=== PATIENT | male | born 1965 | race Caucasian/White ===

== ENCOUNTER 2020-01-25 11:23 | Inpatient (IN) ==
[2020-01-25] MEDS ORDERED: Ondansetron 4 MG/2 ML VIAL IVP PRN (14:21)
[2020-01-25] MEDS ORDERED: Naloxone 0.4 MG/ML INJ IVP PRN (14:21)
[2020-01-25] MEDS ORDERED: 0.9 % Sodium Chloride 1,000 ML IVC SCH (14:45)
[2020-01-25] MEDS ORDERED: Ibuprofen 800 MG TABLET PO PRN (15:01)
[2020-01-25] MEDS: Nicotine 14 MG PATCH.TD24 TD SCH (15:27)
[2020-01-25] MEDS: *HR* OxyCODONE Immed Rel 5 MG TABLET PO PRN (15:27)
[2020-01-25] MEDS: *HR* HYDROcodone/Acet 5/325 mg TABLET PO PRN (20:51)
[2020-01-25] MEDS: *HR* Heparin 5,000 UNIT/ML VIAL SQ SCH (21:28)
[2020-01-26] MEDS: *HR* OxyCODONE Immed Rel 5 MG TABLET PO PRN ×2 (00:59→07:40)
[2020-01-26 01:28] LABS: Amorphous Sediment,Urine Few per hpf (None-Few); Bacteria,Urine Few per hpf (None-Few); Bilirubin,Urine Small (Negative); Blood,Urine Negative (Negative); Clarity,Urine Clear (Clear); Color,Urine Yellow (Yellow); Glucose,Urine (UA) 30 mg/dL (Normal); Ketones,Urine Negative (Negative); Leukocyte Esterase,Urine Negative (Negative); Mucus,Urine Few per lpf (None-Few); Nitrite,Urine Negative (Negative); Protein,Urine 50 mg/dL (Neg-Trace); Specific Gravity,Urine > 1.030 (1.010-1.025); Urobilinogen,Urine >=8.0 mg/dL (Normal)
[2020-01-26] MEDS: *HR* Heparin 5,000 UNIT/ML VIAL SQ SCH ×3 (05:47→21:25)
[2020-01-26 05:48] LABS: Basophils % 0.2 %; Eosinophils # 0.1 K/mcL (0.0-0.6); Eosinophils % 0.3 %; Hemoglobin 12.2 g/dL (12.9-16.9); Immature Granulocytes % 1.2 % (0-4); Lymphocytes # 1.6 K/mcL (0.6-4.6); Lymphocytes % 9.9 %; Mean Corpuscular Hemoglobin 29.5 pg (28.0-33.3); Mean Corpuscular Volume 89.4 fL (83.0-100.0); Mean Platelet Volume 9.4 fL (9.4-12.4); Monocytes # 0.9 K/mcL (0.0-1.3); Monocytes % 5.7 %; Neutrophils # 13.3 K/mcL (1.6-8.9); Platelet Count 369 K/mcL (140-400); Red Blood Count 4.14 M/mcL (4.19-5.50); Red Cell Distribution Width 13.1 % (11.5-14.5); Segmented Neutrophils % 82.7 %; White Blood Count 16.1 K/mcL (4.3-11.1)
[2020-01-26 05:58] LABS: BUN/Creatinine Ratio 19 (6-26); Blood Urea Nitrogen 13 mg/dL (6-20); Calcium 8.1 mg/dL (8.6-10.3); Carbon Dioxide 25 mEq/L (23-29); Chloride 100 mEq/L (98-107); Glucose 88 mg/dL (70-105); Osmolality,Calculated 274 (280-300); Sodium 132 mEq/L (136-145); eGFR For African Americans > 60 (> 60); eGFR For Non-African Americans > 60 (> 60)
[2020-01-26] MEDS: Nicotine 14 MG PATCH.TD24 TD SCH (07:41)
[2020-01-26] MEDS: 0.9 % Sodium Chloride 1,000 ML IVC SCH (15:33)
[2020-01-26] MEDS: *HR* HYDROcodone/Acet 5/325 mg TABLET PO PRN (15:33)
[2020-01-26 16:33] LABS: INR 1.3; Prothrombin Time 14.7 Seconds (9.4-12.1)
[2020-01-26] MEDS: *HR* HYDROmorphone (PF) 1 MG/ML SYRINGE IVP PRN (20:59)
[2020-01-27] MEDS: *HR* HYDROcodone/Acet 5/325 mg TABLET PO PRN (01:24)
[2020-01-27] MEDS: 0.9 % Sodium Chloride 1,000 ML IVC SCH (03:16)
[2020-01-27] MEDS: *HR* HYDROmorphone (PF) 1 MG/ML SYRINGE IVP PRN ×2 (03:28→11:15)
[2020-01-27] MEDS: *HR* Heparin 5,000 UNIT/ML VIAL SQ SCH ×3 (05:18→21:10)
[2020-01-27] MEDS ORDERED: 0.9 % Sodium Chloride 500 ML ONE (09:05)
[2020-01-27] MEDS ORDERED: *HR* Midazolam HCl 2 MG/2 ML VIAL IVP ONE (09:26)
[2020-01-27] MEDS ORDERED: *HR* FentaNYL (PF) 100 MCG/2 ML VIAL ONE (09:26)
[2020-01-27] MEDS ORDERED: *HR* Midazolam HCl 2 MG/2 ML VIAL ONE (09:26)
[2020-01-27] MEDS ORDERED: *HR* FentaNYL (PF) 100 MCG/2 ML VIAL IVP ONE (09:26)
[2020-01-27] MEDS: Nicotine 14 MG PATCH.TD24 TD SCH (11:14)
[2020-01-27] MEDS: *HR* OxyCODONE/APAP 10/325 TABLET PO PRN ×2 (13:15→18:08)
[2020-01-28 02:16] LABS: Basophils % 0.3 %; Eosinophils % 0.1 %; Hematocrit 37.3 % (37.5-50.1); Hemoglobin 12.3 g/dL (12.9-16.9); Immature Granulocytes % 1.2 % (0-4); Lymphocytes # 1.5 K/mcL (0.6-4.6); Lymphocytes % 10.3 %; Mean Corpuscular Hemoglobin 29.5 pg (28.0-33.3); Mean Corpuscular Volume 89.4 fL (83.0-100.0); Mean Platelet Volume 8.9 fL (9.4-12.4); Monocytes % 6.8 %; Neutrophils # 11.5 K/mcL (1.6-8.9); Platelet Count 371 K/mcL (140-400); Red Blood Count 4.17 M/mcL (4.19-5.50); Red Cell Distribution Width 13.1 % (11.5-14.5); Segmented Neutrophils % 81.3 %; White Blood Count 14.2 K/mcL (4.3-11.1)
[2020-01-28 02:35] LABS: BUN/Creatinine Ratio 25 (6-26); Blood Urea Nitrogen 16 mg/dL (6-20); Calcium 8.2 mg/dL (8.6-10.3); Carbon Dioxide 26 mEq/L (23-29); Chloride 103 mEq/L (98-107); Glucose 110 mg/dL (70-105); Osmolality,Calculated 282 (280-300); Potassium 3.8 mEq/L (3.5-5.1); Sodium 135 mEq/L (136-145); eGFR For African Americans > 60 (> 60); eGFR For Non-African Americans > 60 (> 60)
[2020-01-28] MEDS: *HR* OxyCODONE/APAP 10/325 TABLET PO PRN ×5 (02:49→21:04)
[2020-01-28] MEDS: *HR* Heparin 5,000 UNIT/ML VIAL SQ SCH ×3 (05:38→21:04)
[2020-01-28] MEDS: Nicotine 14 MG PATCH.TD24 TD SCH (07:23)
[2020-01-28 11:23] LABS: mecA Methicillin-Resist Gene DETECTED (Not Detect)
[2020-01-28 11:24] LABS: Acinetobacter baumannii by PCR Not Detected (Not Detect); Candida albicans by PCR Not Detected (Not Detect); Candida glabrata by PCR Not Detected (Not Detect); Candida krusei by PCR Not Detected (Not Detect); Candida parapsilosis by PCR Not Detected (Not Detect); Candida tropicalis by PCR Not Detected (Not Detect); Enterobacter cloacae Cmplx PCR Not Detected (Not Detect); Enterobacteriaceae by PCR Not Detected (Not Detect); Enterococcus by PCR Not Detected (Not Detect); Escherichia coli by PCR Not Detected (Not Detect); Klebsiella oxytoca by PCR Not Detected (Not Detect); Klebsiella pneumoniae by PCR Not Detected (Not Detect); Proteus by PCR Not Detected (Not Detect); Pseudomonas aeruginosa by PCR Not Detected (Not Detect); Serratia marcescens by PCR Not Detected (Not Detect); Staphylococcus aureus by PCR DETECTED (Not Detect); Streptococcus agalactiae(B)PCR Not Detected (Not Detect); Streptococcus by PCR Not Detected (Not Detect); Streptococcus pneumoniae PCR Not Detected (Not Detect); Streptococcus pyogenes (A) PCR Not Detected (Not Detect)
[2020-01-28] MEDS: Pantoprazole 40 MG VIAL IVP SCH (14:24)
[2020-01-28] MEDS ORDERED: *HR* LORazepam 0.5 MG TABLET PO ONE (19:57)
[2020-01-29 01:12] LABS: Basophils % 0.2 %; Eosinophils % 0.1 %; Hematocrit 31.9 % (37.5-50.1); Immature Granulocytes % 1.2 % (0-4); Lymphocytes # 1.4 K/mcL (0.6-4.6); Lymphocytes % 10.9 %; Mean Corpuscular HGB Conc 33.2 g/dL (31.6-35.5); Mean Corpuscular Volume 90.4 fL (83.0-100.0); Mean Platelet Volume 9.2 fL (9.4-12.4); Monocytes % 7.7 %; Neutrophils # 10.1 K/mcL (1.6-8.9); Platelet Count 341 K/mcL (140-400); Red Blood Count 3.53 M/mcL (4.19-5.50); Segmented Neutrophils % 79.9 %; White Blood Count 12.7 K/mcL (4.3-11.1)
[2020-01-29 01:13] LABS: Hemoglobin 10.6 g/dL (12.9-16.9)
[2020-01-29 01:21] LABS: BUN/Creatinine Ratio 24 (6-26); Blood Urea Nitrogen 14 mg/dL (6-20); Calcium 7.6 mg/dL (8.6-10.3); Carbon Dioxide 23 mEq/L (23-29); Chloride 103 mEq/L (98-107); Glucose 112 mg/dL (70-105); Osmolality,Calculated 281 (280-300); Potassium 3.8 mEq/L (3.5-5.1); Sodium 135 mEq/L (136-145); eGFR For African Americans > 60 (> 60); eGFR For Non-African Americans > 60 (> 60)
[2020-01-29] MEDS: *HR* OxyCODONE/APAP 10/325 TABLET PO PRN ×5 (03:23→20:37)
[2020-01-29] MEDS: *HR* Heparin 5,000 UNIT/ML VIAL SQ SCH ×3 (06:17→20:37)
[2020-01-29] MEDS: Pantoprazole 40 MG VIAL IVP SCH (07:25)
[2020-01-29] MEDS: Nicotine 14 MG PATCH.TD24 TD SCH (07:25)
[2020-01-29] MEDS ORDERED: Perflutren Lipid Microsphere 1.3 ML in 0.9 % Sodium Chloride 8.7 ML IVP PRN (07:39)
[2020-01-29] MEDS ORDERED: 0.9 % Sodium Chloride 500 ML ONE ×2 (13:40)
[2020-01-29] MEDS ORDERED: *HR* FentaNYL (PF) 100 MCG/2 ML VIAL IVP ONE (13:55)
[2020-01-29] MEDS ORDERED: Sennosides/Docusate Sodium TABLET PO PRN (14:22)
[2020-01-30] MEDS: *HR* OxyCODONE/APAP 10/325 TABLET PO PRN ×4 (00:50→20:16)
[2020-01-30 03:04] LABS: Basophils % 0.2 %; Eosinophils % 0.1 %; Hematocrit 30.6 % (37.5-50.1); Hemoglobin 10.1 g/dL (12.9-16.9); Immature Granulocytes % 1.1 % (0-4); Lymphocytes # 1.1 K/mcL (0.6-4.6); Lymphocytes % 10.7 %; Mean Corpuscular Hemoglobin 29.4 pg (28.0-33.3); Mean Corpuscular Volume 89.2 fL (83.0-100.0); Mean Platelet Volume 9.5 fL (9.4-12.4); Monocytes # 0.7 K/mcL (0.0-1.3); Monocytes % 6.5 %; Neutrophils # 8.4 K/mcL (1.6-8.9); Platelet Count 352 K/mcL (140-400); Red Blood Count 3.43 M/mcL (4.19-5.50); Red Cell Distribution Width 13.2 % (11.5-14.5); Segmented Neutrophils % 81.4 %; White Blood Count 10.3 K/mcL (4.3-11.1)
[2020-01-30 03:21] LABS: BUN/Creatinine Ratio 25 (6-26); Blood Urea Nitrogen 14 mg/dL (6-20); C-Reactive Protein 239 mg/L (Less than 10); Calcium 7.7 mg/dL (8.6-10.3); Carbon Dioxide 24 mEq/L (23-29); Chloride 103 mEq/L (98-107); Glucose 133 mg/dL (70-105); Osmolality,Calculated 282 (280-300); Potassium 3.7 mEq/L (3.5-5.1); Sodium 135 mEq/L (136-145); eGFR For African Americans > 60 (> 60); eGFR For Non-African Americans > 60 (> 60)
[2020-01-30] MEDS: *HR* Heparin 5,000 UNIT/ML VIAL SQ SCH ×3 (04:56→20:17)
[2020-01-30] MEDS: Nicotine 14 MG PATCH.TD24 TD SCH (07:30)
[2020-01-30] MEDS: Pantoprazole 40 MG VIAL IVP SCH (07:34)
[2020-01-30] MEDS: Ibuprofen 400 MG TABLET PO PRN ×2 (13:42→23:10)
[2020-01-31] MEDS: *HR* OxyCODONE/APAP 10/325 TABLET PO PRN ×5 (03:44→20:14)
[2020-01-31] MEDS: *HR* Heparin 5,000 UNIT/ML VIAL SQ SCH ×3 (05:24→20:20)
[2020-01-31] MEDS: Nicotine 14 MG PATCH.TD24 TD SCH (07:28)
[2020-01-31] MEDS: Pantoprazole 40 MG VIAL IVP SCH (08:00)
[2020-01-31 08:08] LABS: Basophils % 0.3 %; Eosinophils % 0.5 %; Hemoglobin 10.6 g/dL (12.9-16.9); Immature Granulocytes % 0.9 % (0-4); Lymphocytes # 1.2 K/mcL (0.6-4.6); Lymphocytes % 14.5 %; Mean Corpuscular HGB Conc 32.1 g/dL (31.6-35.5); Mean Corpuscular Hemoglobin 29.9 pg (28.0-33.3); Mean Corpuscular Volume 93.2 fL (83.0-100.0); Mean Platelet Volume 9.4 fL (9.4-12.4); Monocytes # 0.4 K/mcL (0.0-1.3); Monocytes % 4.8 %; Neutrophils # 6.3 K/mcL (1.6-8.9); Platelet Count 359 K/mcL (140-400); Red Blood Count 3.54 M/mcL (4.19-5.50); Red Cell Distribution Width 13.1 % (11.5-14.5)
[2020-01-31 08:24] LABS: BUN/Creatinine Ratio 21 (6-26); Blood Urea Nitrogen 12 mg/dL (6-20); Carbon Dioxide 25 mEq/L (23-29); Chloride 106 mEq/L (98-107); Glucose 93 mg/dL (70-105); Osmolality,Calculated 285 (280-300); Potassium 4.2 mEq/L (3.5-5.1); Sodium 138 mEq/L (136-145); eGFR For African Americans > 60 (> 60); eGFR For Non-African Americans > 60 (> 60)
[2020-01-31] MEDS: Ibuprofen 400 MG TABLET PO PRN (11:17)
[2020-01-31] MEDS ORDERED: Artificial Tears SOLN 15 ML BOTTLE BOTH EYES PRN (22:02)
[2020-02-01] MEDS: *HR* OxyCODONE/APAP 10/325 TABLET PO PRN ×4 (02:42→19:57)
[2020-02-01 05:28] LABS: Basophils % 0.1 %; Eosinophils # 0.1 K/mcL (0.0-0.6); Eosinophils % 0.9 %; Hemoglobin 10.3 g/dL (12.9-16.9); Immature Granulocytes % 0.6 % (0-4); Lymphocytes % 12.4 %; Mean Corpuscular HGB Conc 32.2 g/dL (31.6-35.5); Mean Corpuscular Hemoglobin 29.1 pg (28.0-33.3); Mean Corpuscular Volume 90.4 fL (83.0-100.0); Mean Platelet Volume 9.4 fL (9.4-12.4); Monocytes # 0.3 K/mcL (0.0-1.3); Monocytes % 4.4 %; Neutrophils # 6.3 K/mcL (1.6-8.9); Platelet Count 393 K/mcL (140-400); Red Blood Count 3.54 M/mcL (4.19-5.50); Segmented Neutrophils % 81.6 %; White Blood Count 7.8 K/mcL (4.3-11.1)
[2020-02-01 05:47] LABS: BUN/Creatinine Ratio 20 (6-26); Blood Urea Nitrogen 11 mg/dL (6-20); C-Reactive Protein 148 mg/L (Less than 10); Calcium 7.9 mg/dL (8.6-10.3); Carbon Dioxide 25 mEq/L (23-29); Chloride 103 mEq/L (98-107); Glucose 99 mg/dL (70-105); Osmolality,Calculated 279 (280-300); Sodium 135 mEq/L (136-145); eGFR For African Americans > 60 (> 60); eGFR For Non-African Americans > 60 (> 60)
[2020-02-01] MEDS: Ibuprofen 400 MG TABLET PO PRN ×2 (05:56→19:56)
[2020-02-01] MEDS: *HR* Heparin 5,000 UNIT/ML VIAL SQ SCH ×3 (05:57→19:57)
[2020-02-01] MEDS: Pantoprazole 40 MG VIAL IVP SCH (08:08)
[2020-02-01] MEDS: Nicotine 14 MG PATCH.TD24 TD SCH (09:43)
[2020-02-01 11:51] LABS: Adenovirus Not Detected (Not Detect); Coronavirus 229E Not Detected (Not Detect)
[2020-02-01 11:52] LABS: Bordetella Pertussis Not Detected (Not Detect); Chlamydophila pneumoniae Not Detected (Not Detect); Coronavirus HKU1 Not Detected (Not Detect); Coronavirus NL63 Not Detected (Not Detect); Coronavirus OC43 Not Detected (Not Detect); Human Metapneumovirus Not Detected (Not Detect); Human Rhinovirus/Enterovirus Not Detected (Not Detect); Influenza A Subtype 2009 H1 Not Detected (Not Detect); Influenza B Not Detected (Not Detect); Mycoplasma pneumoniae Not Detected (Not Detect); Parainfluenza Virus 1 Not Detected (Not Detect); Parainfluenza Virus 2 Not Detected (Not Detect); Parainfluenza Virus 3 Not Detected (Not Detect); Parainfluenza Virus 4 Not Detected (Not Detect); Respiratory Syncytial Virus Not Detected (Not Detect); SARS-CoV-2 Not Detected (Not Detect)
[2020-02-01] MEDS ORDERED: Lidocaine Viscous Oral Soln 15 ML SOLUTION MM PRN (12:59)
[2020-02-01] MEDS ORDERED: 0.9 % Sodium Chloride 500 ML IVC ONE (13:00)
[2020-02-01] MEDS: *HR* Midazolam HCl 5 MG/5 ML VIAL IVP PRN ×5 (13:30→13:50)
[2020-02-01] MEDS: *HR* FentaNYL (PF) 100 MCG/2 ML VIAL IVP PRN ×4 (13:30→13:55)
[2020-02-02] MEDS: *HR* OxyCODONE/APAP 10/325 TABLET PO PRN ×4 (03:52→20:07)
[2020-02-02] MEDS: Ibuprofen 400 MG TABLET PO PRN ×3 (03:53→20:07)
[2020-02-02 05:08] LABS: Basophils % 0.3 %; Eosinophils # 0.1 K/mcL (0.0-0.6); Eosinophils % 1.5 %; Hematocrit 34.6 % (37.5-50.1); Hemoglobin 10.8 g/dL (12.9-16.9); Immature Granulocytes % 0.7 % (0-4); Lymphocytes % 14.3 %; Mean Corpuscular HGB Conc 31.2 g/dL (31.6-35.5); Mean Corpuscular Hemoglobin 28.7 pg (28.0-33.3); Mean Platelet Volume 9.6 fL (9.4-12.4); Monocytes # 0.4 K/mcL (0.0-1.3); Monocytes % 6.1 %; Neutrophils # 5.2 K/mcL (1.6-8.9); Platelet Count 398 K/mcL (140-400); Red Blood Count 3.76 M/mcL (4.19-5.50); Red Cell Distribution Width 12.9 % (11.5-14.5); Segmented Neutrophils % 77.1 %; White Blood Count 6.8 K/mcL (4.3-11.1)
[2020-02-02 05:12] LABS: BUN/Creatinine Ratio 22 (6-26); Blood Urea Nitrogen 12 mg/dL (6-20); Calcium 8.4 mg/dL (8.6-10.3); Carbon Dioxide 26 mEq/L (23-29); Chloride 104 mEq/L (98-107); Glucose 97 mg/dL (70-105); Osmolality,Calculated 282 (280-300); Potassium 3.9 mEq/L (3.5-5.1); Sodium 136 mEq/L (136-145); eGFR For African Americans > 60 (> 60); eGFR For Non-African Americans > 60 (> 60)
[2020-02-02] MEDS: *HR* Heparin 5,000 UNIT/ML VIAL SQ SCH ×3 (05:52→20:07)
[2020-02-02] MEDS: Pantoprazole 40 MG VIAL IVP SCH (08:00)
[2020-02-02] MEDS: Nicotine 14 MG PATCH.TD24 TD SCH (08:01)
[2020-02-02 08:33] LABS: C-Reactive Protein 162 mg/L (Less than 10)
[2020-02-03] MEDS: *HR* OxyCODONE/APAP 10/325 TABLET PO PRN ×5 (03:28→20:28)
[2020-02-03] MEDS: *HR* Heparin 5,000 UNIT/ML VIAL SQ SCH ×3 (05:15→22:05)
[2020-02-03 05:22] LABS: Basophils % 0.1 %; Eosinophils # 0.1 K/mcL (0.0-0.6); Eosinophils % 1.8 %; Hemoglobin 9.8 g/dL (12.9-16.9); Immature Granulocytes % 0.6 % (0-4); Lymphocytes # 1.1 K/mcL (0.6-4.6); Lymphocytes % 16.3 %; Mean Corpuscular HGB Conc 32.7 g/dL (31.6-35.5); Mean Corpuscular Hemoglobin 29.7 pg (28.0-33.3); Mean Corpuscular Volume 90.9 fL (83.0-100.0); Mean Platelet Volume 9.2 fL (9.4-12.4); Monocytes # 0.4 K/mcL (0.0-1.3); Monocytes % 6.4 %; Platelet Count 396 K/mcL (140-400); Red Cell Distribution Width 12.8 % (11.5-14.5); Segmented Neutrophils % 74.8 %; White Blood Count 6.7 K/mcL (4.3-11.1)
[2020-02-03 05:30] LABS: BUN/Creatinine Ratio 19 (6-26); Blood Urea Nitrogen 11 mg/dL (6-20); Calcium 8.2 mg/dL (8.6-10.3); Carbon Dioxide 26 mEq/L (23-29); Chloride 105 mEq/L (98-107); Glucose 104 mg/dL (70-105); Osmolality,Calculated 288 (280-300); Potassium 3.9 mEq/L (3.5-5.1); Sodium 139 mEq/L (136-145); eGFR For African Americans > 60 (> 60); eGFR For Non-African Americans > 60 (> 60)
[2020-02-03] MEDS: Nicotine 14 MG PATCH.TD24 TD SCH (08:33)
[2020-02-03] MEDS: Pantoprazole 40 MG VIAL IVP SCH (08:33)
[2020-02-03 10:53] LABS: C-Reactive Protein 132 mg/L (Less than 10)
[2020-02-03] MEDS ORDERED: Lidocaine Viscous Oral Soln 15 ML SOLUTION MM PRN (11:07)
[2020-02-03] MEDS ORDERED: 0.9 % Sodium Chloride 500 ML IVC ONE (11:08)
[2020-02-03] MEDS ORDERED: *HR* Propofol 200 MG/20 ML VIAL IVP ONE (11:52)
[2020-02-03] MEDS ORDERED: Lidocaine -MPF 2% 5 ML VIAL SQ ONE (11:52)
[2020-02-03] MEDS ORDERED: *HR* Propofol 500 MG/50 ML BOTTLE IVP ONE (11:52)
[2020-02-03] MEDS: Ibuprofen 400 MG TABLET PO PRN (14:10)
[2020-02-03] MEDS ORDERED: Isovue-370 500 ML BOTTLE IVP ONE (14:12)
[2020-02-03 16:19] LABS: Creatine Kinase 41 Units/L (30-223)
[2020-02-03] MEDS: DAPTOmycin 350 MG in 0.9 % Sodium Chloride 100 ML IVPB SCH (17:27)
[2020-02-04] MEDS: *HR* OxyCODONE/APAP 10/325 TABLET PO PRN ×5 (01:02→21:06)
[2020-02-04] MEDS: *HR* Heparin 5,000 UNIT/ML VIAL SQ SCH ×3 (05:47→21:06)
[2020-02-04 07:05] LABS: Basophils % 0.3 %; Eosinophils # 0.1 K/mcL (0.0-0.6); Eosinophils % 0.9 %; Hematocrit 29.5 % (37.5-50.1); Hemoglobin 9.8 g/dL (12.9-16.9); Immature Granulocytes % 0.5 % (0-4); Lymphocytes # 0.8 K/mcL (0.6-4.6); Lymphocytes % 11.6 %; Mean Corpuscular HGB Conc 33.2 g/dL (31.6-35.5); Mean Corpuscular Hemoglobin 30.2 pg (28.0-33.3); Mean Corpuscular Volume 90.8 fL (83.0-100.0); Mean Platelet Volume 8.7 fL (9.4-12.4); Monocytes # 0.4 K/mcL (0.0-1.3); Monocytes % 5.3 %; Neutrophils # 5.4 K/mcL (1.6-8.9); Platelet Count 343 K/mcL (140-400); Red Blood Count 3.25 M/mcL (4.19-5.50); Red Cell Distribution Width 12.6 % (11.5-14.5); Segmented Neutrophils % 81.4 %; White Blood Count 6.6 K/mcL (4.3-11.1)
[2020-02-04 07:30] LABS: % Iron Saturation 9 % (20-55); BUN/Creatinine Ratio 18 (6-26); Blood Urea Nitrogen 10 mg/dL (6-20); Calcium 8.2 mg/dL (8.6-10.3); Carbon Dioxide 25 mEq/L (23-29); Chloride 102 mEq/L (98-107); Glucose 113 mg/dL (70-105); Iron 21 mcg/dL (65-175); Magnesium 1.8 mg/dL (1.6-2.6); Osmolality,Calculated 276 (280-300); Potassium 4.2 mEq/L (3.5-5.1); Sodium 133 mEq/L (136-145); Transferrin 166 mg/dL (203-362); eGFR For African Americans > 60 (> 60); eGFR For Non-African Americans > 60 (> 60)
[2020-02-04 07:44] LABS: Ferritin 255 ng/mL (20-250)
[2020-02-04 07:50] LABS: Folate 15.7 ng/mL (3.0-16.0)
[2020-02-04] MEDS: Nicotine 14 MG PATCH.TD24 TD SCH (08:28)
[2020-02-04] MEDS: Pantoprazole 40 MG VIAL IVP SCH (08:28)
[2020-02-04] MEDS: Ibuprofen 400 MG TABLET PO PRN ×2 (08:34→18:45)
[2020-02-04 14:09] LABS: C-Reactive Protein 127 mg/L (Less than 10)
[2020-02-04] MEDS: DAPTOmycin 350 MG in 0.9 % Sodium Chloride 100 ML IVPB SCH (17:31)
[2020-02-05] MEDS: *HR* OxyCODONE/APAP 10/325 TABLET PO PRN ×6 (01:53→23:36)
[2020-02-05] MEDS: Ibuprofen 400 MG TABLET PO PRN ×3 (04:41→22:15)
[2020-02-05] MEDS: *HR* Heparin 5,000 UNIT/ML VIAL SQ SCH ×3 (06:11→22:15)
[2020-02-05 06:51] LABS: Basophils % 0.2 %; Eosinophils # 0.1 K/mcL (0.0-0.6); Eosinophils % 0.9 %; Hematocrit 28.7 % (37.5-50.1); Hemoglobin 9.2 g/dL (12.9-16.9); Immature Granulocytes % 0.8 % (0-4); Lymphocytes # 1.1 K/mcL (0.6-4.6); Lymphocytes % 17.4 %; Mean Corpuscular HGB Conc 32.1 g/dL (31.6-35.5); Mean Corpuscular Hemoglobin 28.8 pg (28.0-33.3); Mean Platelet Volume 9.2 fL (9.4-12.4); Monocytes # 0.5 K/mcL (0.0-1.3); Neutrophils # 4.8 K/mcL (1.6-8.9); Platelet Count 350 K/mcL (140-400); Red Blood Count 3.19 M/mcL (4.19-5.50); Red Cell Distribution Width 12.8 % (11.5-14.5); Segmented Neutrophils % 73.7 %; White Blood Count 6.6 K/mcL (4.3-11.1)
[2020-02-05 07:17] LABS: BUN/Creatinine Ratio 17 (6-26); Blood Urea Nitrogen 11 mg/dL (6-20); Calcium 8.1 mg/dL (8.6-10.3); Carbon Dioxide 24 mEq/L (23-29); Chloride 102 mEq/L (98-107); Glucose 120 mg/dL (70-105); Magnesium 1.8 mg/dL (1.6-2.6); Osmolality,Calculated 281 (280-300); Potassium 3.7 mEq/L (3.5-5.1); Sodium 135 mEq/L (136-145); eGFR For African Americans > 60 (> 60); eGFR For Non-African Americans > 60 (> 60)
[2020-02-05 09:01] LABS: C-Reactive Protein 118 mg/L (Less than 10)
[2020-02-05] MEDS: Nicotine 14 MG PATCH.TD24 TD SCH (10:06)
[2020-02-05] MEDS: *HR* HYDROmorphone (PF) 1 MG/ML SYRINGE IVP PRN ×2 (14:35→21:02)
[2020-02-05] MEDS: DAPTOmycin 500 MG in 0.9 % Sodium Chloride 100 ML IVPB SCH (18:22)
[2020-02-05] MEDS: Lactobacillus 1 EACH CAP.SPRINK PO SCH (20:53)
[2020-02-06] MEDS: *HR* OxyCODONE/APAP 10/325 TABLET PO PRN ×4 (06:08→21:11)
[2020-02-06] MEDS: *HR* Heparin 5,000 UNIT/ML VIAL SQ SCH ×3 (06:08→21:25)
[2020-02-06] MEDS: *HR* HYDROmorphone (PF) 1 MG/ML SYRINGE IVP PRN ×2 (09:26→18:25)
[2020-02-06] MEDS: Lactobacillus 1 EACH CAP.SPRINK PO SCH ×2 (09:26→21:11)
[2020-02-06] MEDS: Nicotine 14 MG PATCH.TD24 TD SCH (09:26)
[2020-02-06 11:54] LABS: Basophils % 0.3 %; Eosinophils # 0.1 K/mcL (0.0-0.6); Hematocrit 29.5 % (37.5-50.1); Hemoglobin 9.7 g/dL (12.9-16.9); Immature Granulocytes % 0.8 % (0-4); Lymphocytes # 1.1 K/mcL (0.6-4.6); Lymphocytes % 19.1 %; Mean Corpuscular HGB Conc 32.9 g/dL (31.6-35.5); Mean Corpuscular Hemoglobin 30.1 pg (28.0-33.3); Mean Corpuscular Volume 91.6 fL (83.0-100.0); Mean Platelet Volume 9.3 fL (9.4-12.4); Monocytes # 0.4 K/mcL (0.0-1.3); Monocytes % 5.9 %; Neutrophils # 4.4 K/mcL (1.6-8.9); Platelet Count 353 K/mcL (140-400); Red Blood Count 3.22 M/mcL (4.19-5.50); Red Cell Distribution Width 12.7 % (11.5-14.5); Segmented Neutrophils % 72.9 %
[2020-02-06 12:10] LABS: BUN/Creatinine Ratio 13 (6-26); Blood Urea Nitrogen 9 mg/dL (6-20); Calcium 8.1 mg/dL (8.6-10.3); Carbon Dioxide 25 mEq/L (23-29); Chloride 103 mEq/L (98-107); Glucose 144 mg/dL (70-105); Magnesium 1.8 mg/dL (1.6-2.6); Osmolality,Calculated 279 (280-300); Sodium 134 mEq/L (136-145); Vancomycin,Random 18 mcg/mL; eGFR For African Americans > 60 (> 60); eGFR For Non-African Americans > 60 (> 60)
[2020-02-06] MEDS: DAPTOmycin 500 MG in 0.9 % Sodium Chloride 100 ML IVPB SCH (16:43)
[2020-02-07] MEDS: *HR* OxyCODONE/APAP 10/325 TABLET PO PRN ×4 (01:06→20:29)
[2020-02-07] MEDS: *HR* HYDROmorphone (PF) 1 MG/ML SYRINGE IVP PRN ×3 (02:31→16:01)
[2020-02-07] MEDS: *HR* Heparin 5,000 UNIT/ML VIAL SQ SCH ×3 (06:31→20:29)
[2020-02-07 09:03] LABS: Basophils % 0.4 %; Eosinophils % 0.8 %; Hematocrit 30.9 % (37.5-50.1); Hemoglobin 9.8 g/dL (12.9-16.9); Immature Granulocytes % 0.4 % (0-4); Lymphocytes # 1.2 K/mcL (0.6-4.6); Lymphocytes % 24.2 %; Mean Corpuscular HGB Conc 31.7 g/dL (31.6-35.5); Mean Corpuscular Hemoglobin 28.8 pg (28.0-33.3); Mean Corpuscular Volume 90.9 fL (83.0-100.0); Mean Platelet Volume 8.7 fL (9.4-12.4); Monocytes # 0.4 K/mcL (0.0-1.3); Monocytes % 8.1 %; Neutrophils # 3.3 K/mcL (1.6-8.9); Platelet Count 355 K/mcL (140-400); Red Cell Distribution Width 12.9 % (11.5-14.5); Segmented Neutrophils % 66.1 %
[2020-02-07 09:20] LABS: BUN/Creatinine Ratio 12 (6-26); Blood Urea Nitrogen 7 mg/dL (6-20); Calcium 8.6 mg/dL (8.6-10.3); Carbon Dioxide 28 mEq/L (23-29); Chloride 100 mEq/L (98-107); Glucose 96 mg/dL (70-105); Magnesium 1.9 mg/dL (1.6-2.6); Osmolality,Calculated 274 (280-300); Potassium 3.8 mEq/L (3.5-5.1); Sodium 133 mEq/L (136-145); eGFR For African Americans > 60 (> 60); eGFR For Non-African Americans > 60 (> 60)
[2020-02-07] MEDS: Nicotine 14 MG PATCH.TD24 TD SCH (09:45)
[2020-02-07] MEDS: Lactobacillus 1 EACH CAP.SPRINK PO SCH ×2 (09:46→20:30)
[2020-02-07] MEDS: DAPTOmycin 500 MG in 0.9 % Sodium Chloride 100 ML IVPB SCH (17:25)
[2020-02-08] MEDS: *HR* OxyCODONE/APAP 10/325 TABLET PO PRN ×3 (01:33→21:24)
[2020-02-08 03:35] LABS: Basophils % 0.6 %; Eosinophils # 0.1 K/mcL (0.0-0.6); Eosinophils % 1.3 %; Hematocrit 31.5 % (37.5-50.1); Immature Granulocytes % 0.6 % (0-4); Lymphocytes # 1.2 K/mcL (0.6-4.6); Lymphocytes % 22.2 %; Mean Corpuscular HGB Conc 31.7 g/dL (31.6-35.5); Mean Corpuscular Volume 91.3 fL (83.0-100.0); Mean Platelet Volume 8.8 fL (9.4-12.4); Monocytes # 0.5 K/mcL (0.0-1.3); Monocytes % 9.2 %; Neutrophils # 3.5 K/mcL (1.6-8.9); Platelet Count 383 K/mcL (140-400); Red Blood Count 3.45 M/mcL (4.19-5.50); Red Cell Distribution Width 12.9 % (11.5-14.5); Segmented Neutrophils % 66.1 %; White Blood Count 5.2 K/mcL (4.3-11.1)
[2020-02-08 03:44] LABS: INR 1.3; Prothrombin Time 14.4 Seconds (9.4-12.1)
[2020-02-08 03:57] LABS: BUN/Creatinine Ratio 13 (6-26); Blood Urea Nitrogen 9 mg/dL (6-20); C-Reactive Protein 100 mg/L (Less than 10); Calcium 8.4 mg/dL (8.6-10.3); Carbon Dioxide 25 mEq/L (23-29); Chloride 102 mEq/L (98-107); Creatine Kinase 32 Units/L (30-223); Glucose 117 mg/dL (70-105); Magnesium 1.9 mg/dL (1.6-2.6); Osmolality,Calculated 280 (280-300); Potassium 4.5 mEq/L (3.5-5.1); Sodium 135 mEq/L (136-145); eGFR For African Americans > 60 (> 60); eGFR For Non-African Americans > 60 (> 60)
[2020-02-08] MEDS: *HR* HYDROmorphone (PF) 1 MG/ML SYRINGE IVP PRN ×3 (04:15→17:51)
[2020-02-08] MEDS: *HR* Heparin 5,000 UNIT/ML VIAL SQ SCH ×3 (04:17→21:23)
[2020-02-08] MEDS ORDERED: Bacitracin 50,000 UNIT, Polymyxin B Sulfate 500,000 UNIT, Sodium Chloride IRRigation 1,... IR ONE (08:30)
[2020-02-08] MEDS: Lactobacillus 1 EACH CAP.SPRINK PO SCH ×2 (09:07→21:23)
[2020-02-08] MEDS: Nicotine 14 MG PATCH.TD24 TD SCH (09:08)
[2020-02-08] MEDS: Ibuprofen 400 MG TABLET PO PRN (16:06)
[2020-02-09] MEDS: Vancomycin 1,250 MG/262.5 ML IV.SOLN IVPB SCH ×2 (00:09→12:03)
[2020-02-09] MEDS: *HR* HYDROmorphone (PF) 1 MG/ML SYRINGE IVP PRN ×2 (02:38→09:08)
[2020-02-09] MEDS: *HR* Heparin 5,000 UNIT/ML VIAL SQ SCH (05:31)
[2020-02-09] MEDS: *HR* OxyCODONE/APAP 10/325 TABLET PO PRN ×2 (05:34→10:50)
[2020-02-09] MEDS ORDERED: Bacitracin 50,000 UNIT, Polymyxin B Sulfate 500,000 UNIT, Sodium Chloride IRRigation 1,... IR ONE (06:00)
[2020-02-09 10:26] LABS: Basophils % 0.4 %; Eosinophils % 0.6 %; Hematocrit 31.8 % (37.5-50.1); Hemoglobin 10.4 g/dL (12.9-16.9); Immature Granulocytes % 0.6 % (0-4); Lymphocytes % 19.9 %; Mean Corpuscular HGB Conc 32.7 g/dL (31.6-35.5); Mean Corpuscular Volume 91.6 fL (83.0-100.0); Mean Platelet Volume 8.9 fL (9.4-12.4); Monocytes # 0.4 K/mcL (0.0-1.3); Monocytes % 8.4 %; Neutrophils # 3.3 K/mcL (1.6-8.9); Platelet Count 381 K/mcL (140-400); Red Blood Count 3.47 M/mcL (4.19-5.50); Red Cell Distribution Width 12.7 % (11.5-14.5); Segmented Neutrophils % 70.1 %; White Blood Count 4.8 K/mcL (4.3-11.1)
[2020-02-09 10:50] LABS: BUN/Creatinine Ratio 17 (6-26); Blood Urea Nitrogen 12 mg/dL (6-20); Calcium 8.6 mg/dL (8.6-10.3); Carbon Dioxide 28 mEq/L (23-29); Chloride 102 mEq/L (98-107); Glucose 94 mg/dL (70-105); Osmolality,Calculated 282 (280-300); Potassium 4.4 mEq/L (3.5-5.1); Sodium 136 mEq/L (136-145); eGFR For African Americans > 60 (> 60); eGFR For Non-African Americans > 60 (> 60)
[2020-02-09] MEDS: Lactobacillus 1 EACH CAP.SPRINK PO SCH (10:53)
[2020-02-09] MEDS: Nicotine 14 MG PATCH.TD24 TD SCH (10:54)
[2020-02-09] MEDS ORDERED: Lidocaine HCL 4 ML Topical Solution (Laryng-O-Jet Kit Sterile Pak) TP ONE (13:55)
[2020-02-09] MEDS ORDERED: *HR* Succinylcholine 200 MG/10 ML VIAL IVP ONE (13:55)
[2020-02-09] MEDS ORDERED: *HR* Rocuronium Bromide 50 MG/5 ML VIAL ONE (13:55)
[2020-02-09] MEDS ORDERED: Lidocaine -MPF 2% 2 ML VIAL ONE (13:55)
[2020-02-09] MEDS ORDERED: Ondansetron 4 MG/2 ML VIAL ONE (13:56)
[2020-02-09] MEDS ORDERED: Dexamethasone 4 MG/ML VIAL ONE (13:56)
[2020-02-09] MEDS ORDERED: *HR* Propofol 200 MG/20 ML VIAL IVP ONE (13:58)
[2020-02-09] MEDS ORDERED: *HR* FentaNYL (PF) 100 MCG/2 ML VIAL ONE ×2 (13:58→15:39)
[2020-02-09] MEDS ORDERED: *HR* Meperidine 25 MG/ML SYRINGE IVP PRN (14:57)
[2020-02-09] MEDS ORDERED: *HR* Midazolam HCl 2 MG/2 ML VIAL IVP PRN (14:57)
[2020-02-09] MEDS ORDERED: *HR* Promethazine 25 MG/ML VIAL IVP PRN (14:57)
[2020-02-09] MEDS ORDERED: *HR* FentaNYL (PF) 100 MCG/2 ML VIAL IVP PRN (14:57)
[2020-02-09] MEDS ORDERED: *HR* OxyCODONE Immed Rel 5 MG TABLET PO PRN (14:57)
[2020-02-09] MEDS ORDERED: *HR* HYDROMORPHONE 2 MG/ML VIAL ONE (16:08)
[2020-02-09] MEDS ORDERED: Ketorolac 30 MG/ML VIAL ONE (17:10)
[2020-02-09] MEDS: *HR* HYDROmorphone PF 0.5 MG/0.5 ML SYRINGE IVP PRN ×4 (17:20→18:12)
[2020-02-09] MEDS ORDERED: Acetaminophen IV 1,000 MG/100 ML INFUS..BTL IVPB ONE (18:13)
[2020-02-09] MEDS ORDERED: Ringers Solution, Lactated 1,000 ML IVC SCH (19:13)
[2020-02-09] MEDS ORDERED: Naloxone 0.4 MG/ML INJ IVP PRN (19:13)
[2020-02-09] MEDS ORDERED: Ondansetron 4 MG/2 ML VIAL IVP PRN (19:13)
[2020-02-09] MEDS ORDERED: *HR* HYDROcodone/Acet 5/325 mg TABLET PO PRN (19:13)
[2020-02-10] MEDS: *HR* OxyCODONE Immed Rel 5 MG TABLET PO PRN ×5 (03:24→21:46)
[2020-02-10] MEDS ORDERED: Piperacillin/Tazobactam 3.375 GM in 0.9 % Sodium Chloride Mini Bag 100 ML IVPB SCH (06:00)
[2020-02-10] MEDS ORDERED: Clindamycin 900 MG/50 ML 900 MG/50 ML IV.SOLN IVPB SCH (06:00)
[2020-02-10] MEDS: Vancomycin 1,250 MG/262.5 ML IV.SOLN IVPB SCH ×2 (10:40→21:40)
[2020-02-10] MEDS ORDERED: Ketorolac 30 MG/ML VIAL IVP ONE (10:57)
[2020-02-10] MEDS: *HR* HYDROcodone/Acet 7.5/325 mg TABLET PO PRN ×2 (15:49→23:47)
[2020-02-11] MEDS: *HR* OxyCODONE Immed Rel 5 MG TABLET PO PRN ×5 (01:51→21:25)
[2020-02-11] MEDS: Acetaminophen 325 MG TABLET PO PRN ×2 (04:56→12:41)
[2020-02-11 05:05] LABS: INR 1.1; Prothrombin Time 12.8 Seconds (9.4-12.1)
[2020-02-11 05:07] LABS: Basophils % 0.7 %; Eosinophils # 0.1 K/mcL (0.0-0.6); Eosinophils % 0.8 %; Hematocrit 31.6 % (37.5-50.1); Immature Granulocytes % 0.7 % (0-4); Lymphocytes % 17.1 %; Mean Corpuscular HGB Conc 31.6 g/dL (31.6-35.5); Mean Corpuscular Hemoglobin 29.4 pg (28.0-33.3); Mean Corpuscular Volume 92.9 fL (83.0-100.0); Monocytes # 0.5 K/mcL (0.0-1.3); Monocytes % 7.5 %; Neutrophils # 4.4 K/mcL (1.6-8.9); Platelet Count 389 K/mcL (140-400); Red Cell Distribution Width 12.9 % (11.5-14.5); Segmented Neutrophils % 73.2 %
[2020-02-11 05:24] LABS: BUN/Creatinine Ratio 19 (6-26); Blood Urea Nitrogen 13 mg/dL (6-20); Calcium 8.4 mg/dL (8.6-10.3); Carbon Dioxide 28 mEq/L (23-29); Chloride 103 mEq/L (98-107); Glucose 110 mg/dL (70-105); Osmolality,Calculated 285 (280-300); Potassium 4.5 mEq/L (3.5-5.1); Sodium 137 mEq/L (136-145); eGFR For African Americans > 60 (> 60); eGFR For Non-African Americans > 60 (> 60)
[2020-02-11] MEDS: *HR* HYDROcodone/Acet 7.5/325 mg TABLET PO PRN ×2 (08:12→17:27)
[2020-02-11] MEDS: Vancomycin 1,250 MG/262.5 ML IV.SOLN IVPB SCH ×2 (08:16→21:25)
[2020-02-12] MEDS: *HR* HYDROcodone/Acet 7.5/325 mg TABLET PO PRN ×2 (01:35→12:10)
[2020-02-12 03:19] LABS: BUN/Creatinine Ratio 13 (6-26); Blood Urea Nitrogen 9 mg/dL (6-20); Calcium 8.5 mg/dL (8.6-10.3); Carbon Dioxide 29 mEq/L (23-29); Chloride 98 mEq/L (98-107); Glucose 104 mg/dL (70-105); Osmolality,Calculated 275 (280-300); Potassium 3.9 mEq/L (3.5-5.1); Sodium 133 mEq/L (136-145); eGFR For African Americans > 60 (> 60); eGFR For Non-African Americans > 60 (> 60)
[2020-02-12] MEDS: *HR* OxyCODONE Immed Rel 5 MG TABLET PO PRN ×3 (05:42→14:46)
[2020-02-12] MEDS: Vancomycin 1,250 MG/262.5 ML IV.SOLN IVPB SCH (10:11)
[2020-02-12 11:13] VITALS: BP 131/72
[2020-02-12] MEDS ORDERED: Vancomycin 1,250 MG/262.5 ML IV.SOLN IVPB ONE (17:00)
== END 2020-02-12 18:16 | disposition home health service (06) | DRG 320 ==
LOC: 3NENU → SUATTDRO 12:33 → 2NNU 01-29 18:48 → 3NENU 02-03 17:03
PROVIDERS: ADMIT Pharmacist; ATTEND Internal Medicine
PROC: IRDRAIN (2020-01-29 13:00)